=== PATIENT | male | born 1955 | race Caucasian/White ===

== ENCOUNTER 2017-05-23 02:22 | Emergency (ER) | payer OTHER ==
[~2017-05-23] VITALS: Ht 175.3 cm; Wt 77.1 kg
[2017-05-23] MEDS ORDERED: TIMOLOL MALEATE5 M4 OPH (03:04)
--- NOTE | 2017-05-23 03:10 | ED SKIN/ALLERGY COMPLAINT ---
History of Present Illness General Chief Complaint: Allergy Symptoms Stated Complaint: ALLERGIC REACTION "WELTS ON BODY" PER PT Source: patient Exam Limitations: no limitations Vital Signs & Intake/Output Vital Signs & Intake/Output Vital Signs Date Time Temp Pulse Resp B/P B/P Pulse O2 O2 Flow FiO2 Mean Ox Delivery Rate 05/23 0259 98.1 83 18 127/78 96 Room Air Allergies Coded Allergies: bee venom protein (honey bee) (Severe, ANAPHYLAXIS 05/23/17) Reconcile Medications Epinephrine (Epipen 2-Magno) 0.3 MG/0.3 ML AUTO.INJCT 1 UNIT SC ONCE PRN ANAPHYLAXIS Methylprednisolone. (Medrol) 4 MG TAB.DS.PK 1 DP PO AD INFLAMMATION 6 on day 1 then reduce by one tablet daily until gone Timolol Maleate 0.5 % DROPS 1 GTT OPH BID GLAUCOMA (Reported) Triage Note: TRIAGE: PATIENT TO ER FROM HOME REPORTING SEEN AT WALK IN 2 DAYS AGO FOR ?HIVE/ WELT TO BOTTOM LIP, WAS NOT DIAGNOSED W/ ANY SKIN CONDITION/ ALLERGY. PATIENT THEN NOTED SWELLING AND WELT TO UPPER LIP YESTERDAY. NOW REPORTING WELTS TO MULTIPLE SITES. AIRWAY PATENT, SPEECH CLEAR, DENIES SOB. +ITCHY, LAST BENADRYL 8PM LAST NIGHT. ONLY KNOWN ALLERGY IS ANAPHYLAXIS TO BEE STINGS, DENIES ANY KNOWN EXPOSURES TO BEES/ STINGS/ DENIES NEW HOME PRODUCTS. Triage Nurses Notes Reviewed? yes Onset: Abrupt Duration: day(s): (2) Timing: recent history Severity: moderate Location: face, torso No Modifying Factors: none HPI: 62 year old male with history of previous anaphylactic reaction to bee stings who presents to the ER for chief complaint of hives on his torso. Patient started with swelling around his mouth on monday afternoon after having a sandwich which he made at home. Yesterday his lip was still swollen in the morning. Past History Travel History Traveled to [place] past 21 day No Medical History Any Pertinent Medical History? 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 No Review of Systems Review of Systems Constitutional: Denies: chills, fever. EENTM: Reports: no symptoms. Respiratory: Denies: short of breath. Cardiovascular: Reports: no symptoms. GI: Reports: no symptoms. Genitourinary: Reports: no symptoms. Musculoskeletal: Reports: no symptoms. Skin: Reports: rash. Neurological/Psychological: Reports: no symptoms. Hematologic/Endocrine: Denies: bleeding. Immunologic/Allergic: Denies: splenectomy. All Other Systems: Reviewed and Negative Physical Exam Physical Exam General Appearance: well developed/nourished, alert, awake, mild distress Head: atraumatic Eyes: Bilateral: PERRL, EOMI. Ears, Nose, Throat: normal pharynx, normal ENT inspection, hearing grossly normal Neck: normal inspection, supple Respiratory: normal breath sounds Cardiovascular: regular rate/rhythm Gastrointestinal: soft, non-tender Back: normal inspection Extremities: normal inspection, normal range of motion, no edema Neurologic/Psych: awake, alert, oriented x 3, normal mood/affect Skin: intact, normal color, warm/dry Skin Problem Location: face, torso Skin Problem Character: urticarial Lymphatic: no anterior cervical cinda Progress Differential Diagnosis: allergic reaction, anaphylaxis, angioedema, urticaria Plan of Care: Current Medications Sig/Clarisse Start time Last Medication Dose Stop Time Status Admin Famotidine 20 MG ONCE ONE 05/23 315 UNVr (Pepcid) 05/23 316 Prednisone 60 MG ONCE ONE 05/23 315 UNVr 05/23 316 Departure Departure Time of Disposition: 411 Disposition: HOME OR SELF CARE Condition: Stable Clinical Impression Primary Impression: Hives Referrals: AMERICA FISHER,MALOU Strange (PCP/Family) Additional Instructions: Please follow-up with your doctor in the office for further evaluation. Take Benadryl at home as needed for itching. Take the prednisone as directed. Please make sure you have the EpiPen available at all times given her history of anaphylaxis. Return to the ER for any changing or worsening symptoms. Departure Forms: Customer Survey General Discharge Information Prescriptions: Current Visit Scripts Methylprednisolone. (Medrol) 1 DP PO AD #1 DP 6 on day 1 then reduce by one tablet daily until gone Epinephrine (Epipen 2-Magno) 1 UNIT SC ONCE PRN ANAPHYLAXIS #2 UNIT
[2017-05-23] MEDS ORDERED: EPIPEN 2-P0.3 MG/0.3 SC (03:17)
[2017-05-23] MEDS ORDERED: MEDROL4 M2 PO (03:17)
[2017-05-23 04:35] VITALS: BP 124/76
== END 2017-05-23 04:37 ==
LOC: ERH 02:22
DX: L50.9 Urticaria, unspecified (principal)